=== PATIENT | female | born 1955 ===

== ENCOUNTER 2020-10-11 21:47 | Emergency (ER) | payer MEDICARE, OTHER ==
[~2020-10-11] VITALS: Ht 160 cm; Wt 67.9 kg
[2020-10-11 21:53] VITALS: BP 124/83
--- NOTE | 2020-10-12 00:25 | NUR ---
[facility] lead: patient to room from lobby.
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
== END 2020-10-12 01:33 | disposition home or self-care (01) ==
LOC: ED 23:59
DX: T17.298A Other foreign object in pharynx causing other injury, initial encounter (principal); X58.XXXA Exposure to other specified factors, initial encounter; Y93.89 Activity, other specified; Y92.89 Other specified places as the place of occurrence of the external cause; Y99.8 Other external cause status
CPT/HCPCS: 71045; 99283